=== PATIENT | male | born 1945 | race Caucasian/White ===

== ENCOUNTER 2017-10-30 09:25 | Inpatient (IN) ==
[2017-10-30 10:19] LABS: Basophils % 0.1 % (0.0-0.8); Hematocrit 49.8 VOL% (42.0-52.0); Hemoglobin 16.8 GM/DL (14.0-18.0); Immature Granulocytes % 0.3 %; Immature Granulocytes Absolute 0.03 #; Lymphocytes # 0.6 10*3/uL (1.4-4.0); Lymphocytes % 6.4 % (21.2-54.2); Mean Corpuscular HGB Conc 33.7 GM/DL (32-36); Mean Corpuscular Hemoglobin 27 PG (27-34); Mean Corpuscular Volume 79.8 FL (87-102); Mean Platelet Volume 12.2 FL (9.6-12.0); Monocytes # 1.2 10*3/uL (0.11-0.8); Monocytes % 11.9 % (1.7-12.7); Neutrophils % 81.3 % (38.7-73.9); Platelet Count 162 T/CUMM (130-400); Red Blood Count 6.24 MC/CUMM (3.8-5.5); Red Cell Distribution Width 15.3 % (9.3-17.3); White Blood Count 9.8 T/CUMM (4-12)
[2017-10-30 10:25] LABS: PT Patient Result 10.6 SECS; Partial Thromboplastin Time 23.3 SECS (0-40)
[2017-10-30 10:35] LABS: Bilirubin,Total 0.7 MG/DL (0.2-1.0); Calcium 9.2 MG/DL (8.5-10.1); Osmolality,Calculated 295.7 MOS/KG (273-304); Total Protein 7.4 G/DL (6.4-8.3)
[2017-10-30] MEDS ORDERED: PANTOPRAZOLE 40 MG VIAL IV STA (12:00)
[2017-10-30 13:46] LABS: Band Neutrophils 4 % (0-10); Lymphocytes 10 % (20-55); Segmented Neutrophils 77 % (50-85); Total Cells Counted 100
[2017-10-30 13:54] LABS: Platelet Estimate Normal
[2017-10-30] MEDS ORDERED: ONDANSETRON 4 MG/2 ML VIAL IV PRN (14:07)
[2017-10-30] MEDS ORDERED: DEXTROSE 50% 25 GM/50 ML VIAL IV PRN (15:34)
[2017-10-30] MEDS ORDERED: GLUCAGON 1 MG VIAL IM PRN (15:34)
[2017-10-30] MEDS: INSULIN LISPRO 100 UNIT/ML SUBCUT SCH (18:04)
[2017-10-30 18:11] LABS: Hematocrit 47.7 VOL% (42.0-52.0)
[2017-10-30] MEDS: PANTOPRAZOLE 40 MG VIAL IV SCH (20:17)
[2017-10-31] MEDS: INSULIN LISPRO 100 UNIT/ML SUBCUT SCH ×4 (01:47→17:54)
[2017-10-31 06:50] LABS: Basophils % 0.1 % (0.0-0.8); Hematocrit 44.7 VOL% (42.0-52.0); Hemoglobin 15.1 GM/DL (14.0-18.0); Immature Granulocytes % 0.3 %; Immature Granulocytes Absolute 0.04 #; Lymphocytes # 0.9 10*3/uL (1.4-4.0); Lymphocytes % 7.3 % (21.2-54.2); Mean Corpuscular HGB Conc 33.8 GM/DL (32-36); Mean Corpuscular Hemoglobin 27 PG (27-34); Mean Corpuscular Volume 78.8 FL (87-102); Mean Platelet Volume 12.3 FL (9.6-12.0); Monocytes # 0.9 10*3/uL (0.11-0.8); Monocytes % 7.6 % (1.7-12.7); Neutrophils # 10.5 10*3/uL (1.4-7.4); Neutrophils % 84.7 % (38.7-73.9); Platelet Count 140 T/CUMM (130-400); Red Blood Count 5.67 MC/CUMM (3.8-5.5); Red Cell Distribution Width 15.5 % (9.3-17.3); White Blood Count 12.4 T/CUMM (4-12)
[2017-10-31] MEDS ORDERED: ALBUTEROL 2.5 MG/3 ML NEB RESP TX PRN (07:21)
[2017-10-31 07:28] LABS: Albumin 3.5 G/DL (3.4-5.0); Calcium 8.8 MG/DL (8.5-10.1); Osmolality,Calculated 295.7 MOS/KG (273-304); Total Protein 7.5 G/DL (6.4-8.3)
[2017-10-31] MEDS: PANTOPRAZOLE 40 MG VIAL IV SCH ×2 (08:18→21:32)
[2017-10-31] MEDS: SERTRALINE 100 MG TABLET PO SCH (11:05)
[2017-10-31] MEDS: PRAVASTATIN 40 MG TABLET PO SCH (11:05)
[2017-10-31] MEDS: LISINOPRIL 10 MG TABLET PO SCH (11:05)
[2017-10-31] MEDS: ATENOLOL 25 MG TABLET PO SCH (11:05)
[2017-10-31] MEDS: SODIUM CHLORIDE 0.45% 1,000 ML IV SCH ×2 (11:11→19:38)
[2017-10-31 12:05] LABS: Hematocrit 43.5 VOL% (42.0-52.0); Hemoglobin 14.5 GM/DL (14.0-18.0)
[2017-10-31 14:45] LABS: Platelet Estimate Adequate
[2017-10-31] MEDS: MORPHINE 4 MG/1 ML VIAL IV PRN (17:27)
[2017-10-31 17:53] LABS: Hematocrit 42.7 VOL% (42.0-52.0); Hemoglobin 14.4 GM/DL (14.0-18.0)
[2017-11-01] MEDS: INSULIN LISPRO 100 UNIT/ML SUBCUT SCH ×4 (00:14→18:44)
[2017-11-01 01:43] LABS: Calcium 8.4 MG/DL (8.5-10.1)
[2017-11-01 01:55] LABS: Hematocrit 40.1 VOL% (42.0-52.0); Hemoglobin 13.4 GM/DL (14.0-18.0)
[2017-11-01] MEDS: SODIUM CHLORIDE 0.45% 1,000 ML IV SCH (03:39)
[2017-11-01] MEDS ORDERED: SODIUM CHLORIDE 0.9% 500 ML IV ONE (04:35)
[2017-11-01] MEDS: SODIUM CHLORIDE 0.9% 1,000 ML IV SCH ×2 (05:21→17:26)
[2017-11-01 05:58] LABS: Hematocrit 40.4 VOL% (42.0-52.0); Hemoglobin 13.6 GM/DL (14.0-18.0)
[2017-11-01] MEDS: PANTOPRAZOLE 40 MG VIAL IV SCH ×2 (10:04→21:39)
[2017-11-01] MEDS: PRAVASTATIN 40 MG TABLET PO SCH (10:04)
[2017-11-01] MEDS: SERTRALINE 100 MG TABLET PO SCH (10:05)
[2017-11-01] MEDS ORDERED: TISSUE ADHESIVE 1 EACH APPLICATOR TOP ONE (11:45)
[2017-11-01] MEDS ORDERED: BUPIVACAINE 0.5% 50 ML VIAL ONE (11:45)
[2017-11-01] MEDS ORDERED: ceFAZolin 1,000 MG VIAL ONE (11:45)
[2017-11-01] MEDS ORDERED: BUPIVACAINE 0.5% /EPI 10 ML VIAL ONE (11:45)
[2017-11-01] MEDS ORDERED: LIDOCAINE 1% 20 ML VIAL ONE (11:45)
[2017-11-01] MEDS ORDERED: BACITRACIN 50,000 UNIT VIAL ONE (11:46)
[2017-11-01] MEDS ORDERED: cefOXitin 2,000 MG in SYRINGE 1 EACH IV ONE (12:00)
[2017-11-01] MEDS ORDERED: PHENYLEPHRINE DRIP 20 MG/250 ML PREMIX IV ONE ×2 (13:03→15:48)
[2017-11-01 15:13] LABS: Apearance,Urine CLEAR (Clear); Bacteria,Urine Occasional /HPF (Few); Bilirubin,Urine Negative (Negative); Blood, Urine Moderate mg/dL (Negative); Glucose,Urine (UA) Negative (Negative); Hyaline Casts,Urine 1 /LPF (0-3); Ketones,Urine Negative (Negative); Nitrite,Urine Negative (Negative); Protein,Urine Negative; RBC,Urine 1 /HPF (0-4); Squamous Epithelial Cell,Urine Occasional /HPF (0-10); Urine Color Yellow (Yellow); Urine Specific Gravity 1.013 (1.001-1.035); Urine Urobilinogen < 2.0 EU/DL (0.2-1.0); WBC,Urine 1 /HPF (0-6)
[2017-11-01] MEDS ORDERED: HYDROmorphone 2 MG/1 ML VIAL ONE (15:40)
[2017-11-01] MEDS ORDERED: ONDANSETRON 4 MG/2 ML VIAL ONE (15:41)
[2017-11-01] MEDS ORDERED: LABETALOL 20 MG/4 ML SYRINGE IV ONE (15:48)
[2017-11-01] MEDS ORDERED: PROPOFOL 200 MG/20 ML VIAL IV ONE (15:48)
[2017-11-01] MEDS ORDERED: MIDAZOLAM 2 MG/2 ML VIAL ONE (15:48)
[2017-11-01] MEDS ORDERED: DESFLURANE 1 UNIT/15 MINUTE INH ONE (15:48)
[2017-11-01] MEDS ORDERED: fentaNYL 100 MCG/2 ML VIAL ONE (15:48)
[2017-11-01] MEDS ORDERED: GLYCOPYRROLATE 0.4 MG/2 ML VIAL ONE (15:49)
[2017-11-01] MEDS: ATENOLOL 25 MG TABLET PO SCH (15:49)
[2017-11-01] MEDS ORDERED: LACTATED RINGERS 1,000 ML IV ONE (15:49)
[2017-11-01] MEDS: LISINOPRIL 10 MG TABLET PO SCH (15:49)
[2017-11-01] MEDS ORDERED: ROCURONIUM 100 MG/10 ML VIAL IV ONE (15:49)
[2017-11-01] MEDS ORDERED: SUCCINYLCHOLINE 200 MG/10 ML VIAL ONE (15:49)
[2017-11-01] MEDS ORDERED: NEOSTIGMINE 10 MG/10 ML VIAL ONE (15:49)
[2017-11-01] MEDS ORDERED: PHENYLEPHRINE 10 MG/1 ML VIAL IV ONE (15:49)
[2017-11-01] MEDS ORDERED: ONDANSETRON 4 MG/2 ML VIAL IV PRN (15:59)
[2017-11-01] MEDS: HYDROmorphone 2 MG/1 ML VIAL IV PRN ×2 (16:00→16:05)
[2017-11-01] MEDS: MORPHINE 4 MG/1 ML VIAL IV PRN (21:48)
[2017-11-02] MEDS: MORPHINE 4 MG/1 ML VIAL IV PRN ×2 (04:16→10:28)
[2017-11-02 04:37] LABS: Hematocrit 40.5 VOL% (42.0-52.0); Hemoglobin 13.2 GM/DL (14.0-18.0); Immature Granulocytes % 0.4 %; Immature Granulocytes Absolute 0.04 #; Lymphocytes # 0.4 10*3/uL (1.4-4.0); Lymphocytes % 4.4 % (21.2-54.2); Mean Corpuscular HGB Conc 32.6 GM/DL (32-36); Mean Corpuscular Hemoglobin 27 PG (27-34); Mean Corpuscular Volume 83.2 FL (87-102); Mean Platelet Volume 12.3 FL (9.6-12.0); Monocytes # 0.8 10*3/uL (0.11-0.8); Monocytes % 8.1 % (1.7-12.7); Neutrophils # 8.6 10*3/uL (1.4-7.4); Neutrophils % 87.1 % (38.7-73.9); Platelet Count 131 T/CUMM (130-400); Red Blood Count 4.87 MC/CUMM (3.8-5.5); Red Cell Distribution Width 15.2 % (9.3-17.3); White Blood Count 9.9 T/CUMM (4-12)
[2017-11-02 05:07] LABS: Albumin 2.2 G/DL (3.4-5.0); Bilirubin,Total 1.1 MG/DL (0.2-1.0); Calcium 8.1 MG/DL (8.5-10.1); Osmolality,Calculated 302.3 MOS/KG (273-304); Potassium 4.2 MMOL/L (3.5-5.1)
[2017-11-02 05:13] LABS: Band Neutrophils 3 % (0-10); Hypochromasia Slight; Lymphocytes 9 % (20-55); Platelet Estimate Normal; Segmented Neutrophils 86 % (50-85); Total Cells Counted 100
[2017-11-02] MEDS: INSULIN LISPRO 100 UNIT/ML SUBCUT SCH ×4 (06:00→17:54)
[2017-11-02] MEDS: SODIUM CHLORIDE 0.9% 1,000 ML IV SCH ×2 (08:47)
[2017-11-02] MEDS: PIPERACILLIN/TAZOBACTAM 3,375 MG in SODIUM CHLORIDE 0.9% 100 ML IV SCH ×2 (10:19→17:04)
[2017-11-02] MEDS: SERTRALINE 100 MG TABLET PO SCH (11:51)
[2017-11-02] MEDS: LISINOPRIL 10 MG TABLET PO SCH (11:51)
[2017-11-02] MEDS: ATENOLOL 25 MG TABLET PO SCH (11:51)
[2017-11-02] MEDS: PANTOPRAZOLE 40 MG VIAL IV SCH ×2 (11:51→21:02)
[2017-11-02] MEDS: PRAVASTATIN 40 MG TABLET PO SCH (11:51)
[2017-11-02] MEDS: METOCLOPRAMIDE 10 MG/2 ML VIAL IV SCH ×2 (13:00→21:00)
[2017-11-02] MEDS: DEXT 5% NACL 0.45% KCL 20 MEQ 20 MEQ/1,000 ML BAG IV SCH ×2 (13:00→19:30)
[2017-11-02] MEDS: HYDROmorphone 2 MG/1 ML VIAL IV PRN ×2 (15:43→20:53)
[2017-11-03] MEDS: INSULIN LISPRO 100 UNIT/ML SUBCUT SCH ×5 (00:14→23:55)
[2017-11-03] MEDS: PIPERACILLIN/TAZOBACTAM 3,375 MG in SODIUM CHLORIDE 0.9% 100 ML IV SCH ×2 (01:54→08:55)
[2017-11-03] MEDS: HYDROmorphone 2 MG/1 ML VIAL IV PRN ×6 (04:03→23:45)
[2017-11-03] MEDS: METOCLOPRAMIDE 10 MG/2 ML VIAL IV SCH (05:47)
[2017-11-03] MEDS: PANTOPRAZOLE 40 MG VIAL IV SCH ×2 (08:53→20:53)
[2017-11-03] MEDS: DEXT 5% NACL 0.45% KCL 20 MEQ 20 MEQ/1,000 ML BAG IV SCH ×4 (08:57→20:58)
[2017-11-03 10:05] LABS: Basophils % 0.1 % (0.0-0.8); Eosinophils % 0.2 % (0.00-10.9); Hematocrit 40.2 VOL% (42.0-52.0); Hemoglobin 13.1 GM/DL (14.0-18.0); Immature Granulocytes % 1.3 %; Immature Granulocytes Absolute 0.13 #; Lymphocytes # 0.7 10*3/uL (1.4-4.0); Lymphocytes % 7.2 % (21.2-54.2); Mean Corpuscular HGB Conc 32.6 GM/DL (32-36); Mean Corpuscular Hemoglobin 27 PG (27-34); Mean Corpuscular Volume 82.9 FL (87-102); Mean Platelet Volume 11.2 FL (9.6-12.0); Monocytes # 0.9 10*3/uL (0.11-0.8); Monocytes % 8.8 % (1.7-12.7); Neutrophils # 8.2 10*3/uL (1.4-7.4); Neutrophils % 82.4 % (38.7-73.9); Platelet Count 153 T/CUMM (130-400); Red Blood Count 4.85 MC/CUMM (3.8-5.5); Red Cell Distribution Width 15.3 % (9.3-17.3); White Blood Count 9.9 T/CUMM (4-12)
[2017-11-03] MEDS: TAMSULOSIN 0.4 MG CAPSULE PO SCH (10:18)
[2017-11-03] MEDS: PRAVASTATIN 40 MG TABLET PO SCH (10:19)
[2017-11-03] MEDS: ATENOLOL 25 MG TABLET PO SCH (10:19)
[2017-11-03] MEDS: LISINOPRIL 10 MG TABLET PO SCH (10:19)
[2017-11-03] MEDS: SERTRALINE 100 MG TABLET PO SCH (10:19)
[2017-11-03 10:24] LABS: Band Neutrophils 2 % (0-10); Hypochromasia 1+; Lymphocytes 7 % (20-55); Platelet Estimate Adequate; Segmented Neutrophils 84 % (50-85); Total Cells Counted 100
[2017-11-03 10:32] LABS: Calcium 8.4 MG/DL (8.5-10.1); Osmolality,Calculated 312.2 MOS/KG (273-304); Potassium 3.9 MMOL/L (3.5-5.1)
[2017-11-03] MEDS: chlorproMAZINE 25 MG TABLET PO PRN ×2 (13:00→20:53)
[2017-11-03] MEDS: ceFAZolin 2,000 MG in PREMIX 1 EACH IV SCH (16:18)
[2017-11-04] MEDS: ceFAZolin 2,000 MG in PREMIX 1 EACH IV SCH ×3 (00:33→16:52)
[2017-11-04] MEDS: HYDROmorphone 2 MG/1 ML VIAL IV PRN ×6 (03:26→22:53)
[2017-11-04] MEDS: DEXT 5% NACL 0.45% KCL 20 MEQ 20 MEQ/1,000 ML BAG IV SCH (04:50)
[2017-11-04 05:18] LABS: Basophils % 0.2 % (0.0-0.8); Eosinophils # 0.1 10*3/uL (0.0-0.87); Eosinophils % 1.1 % (0.00-10.9); Hematocrit 37.3 VOL% (42.0-52.0); Hemoglobin 12.4 GM/DL (14.0-18.0); Immature Granulocytes % 1.6 %; Immature Granulocytes Absolute 0.14 #; Lymphocytes # 0.7 10*3/uL (1.4-4.0); Lymphocytes % 8.2 % (21.2-54.2); Mean Corpuscular HGB Conc 33.2 GM/DL (32-36); Mean Corpuscular Hemoglobin 27 PG (27-34); Mean Corpuscular Volume 81.3 FL (87-102); Monocytes # 0.9 10*3/uL (0.11-0.8); Monocytes % 9.6 % (1.7-12.7); Neutrophils % 79.3 % (38.7-73.9); Platelet Count 150 T/CUMM (130-400); Red Blood Count 4.59 MC/CUMM (3.8-5.5); Red Cell Distribution Width 15.3 % (9.3-17.3); White Blood Count 8.8 T/CUMM (4-12)
[2017-11-04] MEDS: INSULIN LISPRO 100 UNIT/ML SUBCUT SCH ×3 (05:31→18:55)
[2017-11-04] MEDS: ACETAMINOPHEN 325 MG TABLET PO PRN (05:31)
[2017-11-04 05:51] LABS: Calcium 7.8 MG/DL (8.5-10.1); Osmolality,Calculated 315.9 MOS/KG (273-304); Potassium 3.7 MMOL/L (3.5-5.1)
[2017-11-04] MEDS: LISINOPRIL 10 MG TABLET PO SCH (09:02)
[2017-11-04] MEDS: SERTRALINE 100 MG TABLET PO SCH (09:02)
[2017-11-04] MEDS: TAMSULOSIN 0.4 MG CAPSULE PO SCH (09:03)
[2017-11-04] MEDS: PANTOPRAZOLE 40 MG VIAL IV SCH ×2 (09:03→20:29)
[2017-11-04] MEDS: PRAVASTATIN 40 MG TABLET PO SCH (09:04)
[2017-11-04] MEDS: ATENOLOL 25 MG TABLET PO SCH (09:04)
[2017-11-04] MEDS: DEXTROSE 5% KCL 20 MEQ 20 MEQ/1,000 ML BAG IV SCH ×2 (11:39→23:33)
[2017-11-04] MEDS: metroNIDAZOLE INJ 500 MG in PREMIX 1 EACH IV SCH ×3 (11:39→23:14)
[2017-11-04] MEDS ORDERED: ATENOLOL 50 MG TABLET PO SCH (12:15)
[2017-11-04] MEDS ORDERED: MAGNESIUM SULF RIDER 4 GM in PREMIX 1 EACH IV PRN (13:48)
[2017-11-04] MEDS ORDERED: MAGNESIUM SULF RIDER 2 GM in PREMIX 1 EACH IV PRN (13:48)
[2017-11-04] MEDS ORDERED: METOPROLOL TARTRATE 5 MG/5 ML VIAL IV ONE (14:30)
[2017-11-04] MEDS ORDERED: KETOROLAC 30 MG/1 ML VIAL IV ONE (16:06)
[2017-11-04] MEDS ORDERED: MULTIVITAMIN IV SCH (17:00)
[2017-11-04] MEDS ORDERED: TRACE ELEMENTS IV SCH (17:00)
[2017-11-04] MEDS ORDERED: [UNRECOGNIZED DRUG - OTHER] IV SCH (17:00)
[2017-11-04] MEDS: KETOROLAC 30 MG/1 ML VIAL IV PRN (20:23)
[2017-11-04] MEDS: FAT EMULSION 20% 250 ML IV SCH (20:24)
[2017-11-04] MEDS: METOPROLOL TARTRATE 5 MG/5 ML VIAL IV SCH (20:29)
[2017-11-04] MEDS ORDERED: LORazepam 2 MG/1 ML VIAL IV ONE (23:00)
[2017-11-05] MEDS: INSULIN LISPRO 100 UNIT/ML SUBCUT SCH ×5 (00:15→23:55)
[2017-11-05] MEDS: ceFAZolin 2,000 MG in PREMIX 1 EACH IV SCH ×2 (00:16→08:59)
[2017-11-05] MEDS: METOPROLOL TARTRATE 5 MG/5 ML VIAL IV SCH ×4 (02:02→21:19)
[2017-11-05 03:44] LABS: Basophils % 0.2 % (0.0-0.8); Eosinophils # 0.3 10*3/uL (0.0-0.87); Eosinophils % 3.1 % (0.00-10.9); Hematocrit 37.3 VOL% (42.0-52.0); Immature Granulocytes % 2.7 %; Immature Granulocytes Absolute 0.26 #; Lymphocytes # 1.1 10*3/uL (1.4-4.0); Lymphocytes % 11.4 % (21.2-54.2); Mean Corpuscular HGB Conc 32.2 GM/DL (32-36); Mean Corpuscular Hemoglobin 27 PG (27-34); Mean Corpuscular Volume 83.3 FL (87-102); Mean Platelet Volume 10.9 FL (9.6-12.0); Monocytes # 0.8 10*3/uL (0.11-0.8); Monocytes % 8.6 % (1.7-12.7); Neutrophils # 7.3 10*3/uL (1.4-7.4); Platelet Count 161 T/CUMM (130-400); Red Blood Count 4.48 MC/CUMM (3.8-5.5); Red Cell Distribution Width 15.5 % (9.3-17.3); White Blood Count 9.8 T/CUMM (4-12)
[2017-11-05 04:24] LABS: Osmolality,Calculated 305.6 MOS/KG (273-304); Potassium 3.6 MMOL/L (3.5-5.1); Prealbumin 6.7 MG/DL (20-40); Troponin I 0.022 NG/ML (0.00-0.045)
[2017-11-05] MEDS: metroNIDAZOLE INJ 500 MG in PREMIX 1 EACH IV SCH ×3 (04:47→17:29)
[2017-11-05] MEDS ORDERED: LORazepam 2 MG/1 ML VIAL IV ONE (05:37)
[2017-11-05] MEDS ORDERED: DILTIAZEM 50 MG/10 ML VIAL IV ONE (08:01)
[2017-11-05] MEDS ORDERED: ALBUTEROL 2.5 MG/3 ML NEB RESP TX SCH (08:30)
[2017-11-05] MEDS ORDERED: DILTIAZEM INJ 100 MG in SODIUM CHLORIDE 0.9% 100 ML IV SCH (08:30)
[2017-11-05] MEDS: TAMSULOSIN 0.4 MG CAPSULE PO SCH (08:55)
[2017-11-05] MEDS: SERTRALINE 100 MG TABLET PO SCH (08:55)
[2017-11-05] MEDS: LISINOPRIL 10 MG TABLET PO SCH (08:55)
[2017-11-05] MEDS: PANTOPRAZOLE 40 MG VIAL IV SCH ×2 (09:15→21:19)
[2017-11-05] MEDS: KETOROLAC 30 MG/1 ML VIAL IV PRN ×2 (09:18→16:16)
[2017-11-05] MEDS: ALBUTEROL/IPRATROPIUM 3 ML NEB RESP TX SCH ×3 (09:23→19:22)
[2017-11-05] MEDS ORDERED: DIGOXIN 0.5 MG/2 ML AMP IV ONE (10:33)
[2017-11-05] MEDS: DEXTROSE 5% KCL 20 MEQ 20 MEQ/1,000 ML BAG IV SCH ×2 (10:51→14:10)
[2017-11-05] MEDS ORDERED: DEXTROSE 10% 1,000 ML IV PRN (11:46)
[2017-11-05] MEDS ORDERED: AMIODARONE INJ 150 MG in DEXTROSE 5% 100 ML IV ONE (12:58)
[2017-11-05] MEDS ORDERED: AMIODARONE INJ 450 MG in DEXTROSE 5% 241 ML IV SCH (13:00)
[2017-11-05] MEDS: FAT EMULSION 20% 250 ML IV SCH (13:56)
[2017-11-05] MEDS ORDERED: SODIUM PHOSPHATE INJ 15 MMOL in SODIUM CHLORIDE 0.9% 250 ML IV ONE (14:00)
[2017-11-05] MEDS: POTASSIUM CHLORIDE RIDER 20 MEQ in PREMIX 1 EACH IV PRN (16:18)
[2017-11-05] MEDS ORDERED: POLYVINYL ALCOHOL 1.4% OPH SOLN 15 ML BOTTLE BOTH EYES PRN (16:57)
[2017-11-05] MEDS ORDERED: LORazepam 2 MG/1 ML VIAL ONE (17:21)
[2017-11-05] MEDS: [UNRECOGNIZED DRUG - OTHER] IV SCH (19:11)
[2017-11-05] MEDS: TRACE ELEMENTS IV SCH (19:11)
[2017-11-05] MEDS: MULTIVITAMIN IV SCH (19:11)
[2017-11-05] MEDS ORDERED: HALOPERIDOL 5 MG/ML AMP IM ONE (19:26)
[2017-11-05] MEDS: AMIODARONE INJ 450 MG in DEXTROSE 5% 241 ML IV SCH (21:19)
[2017-11-06] MEDS: ALBUTEROL/IPRATROPIUM 3 ML NEB RESP TX SCH ×4 (00:08→19:04)
[2017-11-06] MEDS: metroNIDAZOLE INJ 500 MG in PREMIX 1 EACH IV SCH ×5 (00:23→23:47)
[2017-11-06] MEDS: DEXTROSE 5% KCL 20 MEQ 20 MEQ/1,000 ML BAG IV SCH ×2 (02:54→09:37)
[2017-11-06] MEDS: METOPROLOL TARTRATE 5 MG/5 ML VIAL IV SCH ×4 (04:03→20:52)
[2017-11-06 05:15] LABS: Basophils % 0.2 % (0.0-0.8); Eosinophils # 0.2 10*3/uL (0.0-0.87); Eosinophils % 2.3 % (0.00-10.9); Hematocrit 37.4 VOL% (42.0-52.0); Hemoglobin 12.6 GM/DL (14.0-18.0); Immature Granulocytes % 6.8 %; Immature Granulocytes Absolute 0.65 #; Lymphocytes % 10.3 % (21.2-54.2); Mean Corpuscular HGB Conc 33.7 GM/DL (32-36); Mean Corpuscular Hemoglobin 27 PG (27-34); Mean Corpuscular Volume 78.7 FL (87-102); Mean Platelet Volume 11.5 FL (9.6-12.0); Monocytes # 0.6 10*3/uL (0.11-0.8); Monocytes % 6.5 % (1.7-12.7); Neutrophils # 7.1 10*3/uL (1.4-7.4); Neutrophils % 73.9 % (38.7-73.9); Platelet Count 169 T/CUMM (130-400); Red Blood Count 4.75 MC/CUMM (3.8-5.5); Red Cell Distribution Width 14.7 % (9.3-17.3); White Blood Count 9.6 T/CUMM (4-12)
[2017-11-06 05:40] LABS: Calcium 7.4 MG/DL (8.5-10.1); Osmolality,Calculated 294.3 MOS/KG (273-304); Potassium 3.4 MMOL/L (3.5-5.1)
[2017-11-06 05:53] LABS: Band Neutrophils 2 % (0-10); Eosinophils 1 % (0-10); Hypochromasia 1+; Lymphocytes 20 % (20-55); Platelet Estimate Normal; Segmented Neutrophils 70 % (50-85); Total Cells Counted 100
[2017-11-06] MEDS: INSULIN LISPRO 100 UNIT/ML SUBCUT SCH ×4 (06:04→23:47)
[2017-11-06] MEDS: TAMSULOSIN 0.4 MG CAPSULE PO SCH (09:31)
[2017-11-06] MEDS: LISINOPRIL 10 MG TABLET PO SCH (09:31)
[2017-11-06] MEDS: PANTOPRAZOLE 40 MG VIAL IV SCH ×2 (09:31→20:49)
[2017-11-06] MEDS: SERTRALINE 100 MG TABLET PO SCH (09:31)
[2017-11-06] MEDS ORDERED: POTASSIUM CHLORIDE RIDER 100 ML IV ONE (09:32)
[2017-11-06] MEDS: KETOROLAC 30 MG/1 ML VIAL IV PRN ×2 (09:33→15:00)
[2017-11-06] MEDS: POTASSIUM CHLORIDE RIDER 20 MEQ in PREMIX 1 EACH IV PRN (09:38)
[2017-11-06] MEDS ORDERED: POTASSIUM CHLORIDE RIDER 10 MEQ in PREMIX 1 EACH IV PRN (09:40)
[2017-11-06] MEDS: ENOXAPARIN 40 MG/0.4 ML SYRINGE SUBCUT SCH (11:12)
[2017-11-06] MEDS: AMIODARONE INJ 450 MG in DEXTROSE 5% 241 ML IV SCH (13:37)
[2017-11-06] MEDS: FAT EMULSION 20% 250 ML IV SCH (13:51)
[2017-11-06] MEDS: HYDROmorphone 2 MG/1 ML VIAL IV PRN (14:57)
[2017-11-06] MEDS: MULTIVITAMIN IV SCH (17:40)
[2017-11-06] MEDS: ceFAZolin 2,000 MG in PREMIX 1 EACH IV SCH (17:40)
[2017-11-06] MEDS: [UNRECOGNIZED DRUG - OTHER] IV SCH (17:40)
[2017-11-06] MEDS: TRACE ELEMENTS IV SCH (17:40)
[2017-11-07] MEDS: ALBUTEROL/IPRATROPIUM 3 ML NEB RESP TX SCH ×4 (01:04→19:07)
[2017-11-07] MEDS: ceFAZolin 2,000 MG in PREMIX 1 EACH IV SCH ×3 (01:15→17:12)
[2017-11-07] MEDS: METOPROLOL TARTRATE 5 MG/5 ML VIAL IV SCH ×2 (04:02→10:19)
[2017-11-07] MEDS: AMIODARONE INJ 450 MG in DEXTROSE 5% 241 ML IV SCH (05:29)
[2017-11-07] MEDS: metroNIDAZOLE INJ 500 MG in PREMIX 1 EACH IV SCH ×3 (05:29→16:03)
[2017-11-07 05:57] LABS: Calcium 7.6 MG/DL (8.5-10.1); Osmolality,Calculated 289.1 MOS/KG (273-304)
[2017-11-07] MEDS: INSULIN LISPRO 100 UNIT/ML SUBCUT SCH ×3 (06:20→18:38)
[2017-11-07] MEDS: LISINOPRIL 10 MG TABLET PO SCH (08:27)
[2017-11-07] MEDS: TAMSULOSIN 0.4 MG CAPSULE PO SCH (08:27)
[2017-11-07] MEDS: SERTRALINE 100 MG TABLET PO SCH (08:27)
[2017-11-07] MEDS: PANTOPRAZOLE 40 MG VIAL IV SCH ×2 (08:28→20:25)
[2017-11-07] MEDS: KETOROLAC 30 MG/1 ML VIAL IV PRN ×2 (08:30→15:20)
[2017-11-07] MEDS: DEXTROSE 5% KCL 20 MEQ 20 MEQ/1,000 ML BAG IV SCH (08:36)
[2017-11-07] MEDS: ENOXAPARIN 40 MG/0.4 ML SYRINGE SUBCUT SCH (10:23)
[2017-11-07] MEDS: AMIODARONE 200 MG TABLET PO SCH ×2 (12:08→20:25)
[2017-11-07] MEDS: HYDROmorphone 2 MG/1 ML VIAL IV PRN ×2 (12:53→15:23)
[2017-11-07] MEDS: FAT EMULSION 20% 250 ML IV SCH (15:19)
[2017-11-07] MEDS: METOPROLOL TARTRATE 25 MG TABLET PO SCH ×2 (15:23→20:25)
[2017-11-07] MEDS: MULTIVITAMIN IV SCH (17:12)
[2017-11-07] MEDS: TRACE ELEMENTS IV SCH (17:12)
[2017-11-07] MEDS: [UNRECOGNIZED DRUG - OTHER] IV SCH (17:12)
[2017-11-08] MEDS: INSULIN LISPRO 100 UNIT/ML SUBCUT SCH ×4 (00:16→17:49)
[2017-11-08] MEDS: metroNIDAZOLE INJ 500 MG in PREMIX 1 EACH IV SCH ×5 (00:16→23:23)
[2017-11-08] MEDS: ALBUTEROL/IPRATROPIUM 3 ML NEB RESP TX SCH ×4 (01:45→19:06)
[2017-11-08] MEDS: ceFAZolin 2,000 MG in PREMIX 1 EACH IV SCH ×3 (01:55→16:28)
[2017-11-08] MEDS: HYDROmorphone 2 MG/1 ML VIAL IV PRN (04:50)
[2017-11-08 05:32] LABS: Calcium 7.8 MG/DL (8.5-10.1); Osmolality,Calculated 287.1 MOS/KG (273-304); Potassium 4.5 MMOL/L (3.5-5.1); Prealbumin 12.2 MG/DL (20-40)
[2017-11-08 05:40] LABS: Calcium 7.8 MG/DL (8.5-10.1); Potassium 4.5 MMOL/L (3.5-5.1)
[2017-11-08] MEDS: ENOXAPARIN 40 MG/0.4 ML SYRINGE SUBCUT SCH (09:19)
[2017-11-08] MEDS: AMIODARONE 200 MG TABLET PO SCH ×2 (09:19→21:17)
[2017-11-08] MEDS: LISINOPRIL 10 MG TABLET PO SCH (09:20)
[2017-11-08] MEDS: METOPROLOL TARTRATE 25 MG TABLET PO SCH ×2 (09:20→21:18)
[2017-11-08] MEDS: TAMSULOSIN 0.4 MG CAPSULE PO SCH (09:20)
[2017-11-08] MEDS: SERTRALINE 100 MG TABLET PO SCH (09:20)
[2017-11-08] MEDS: PANTOPRAZOLE 40 MG VIAL IV SCH ×2 (09:26→21:18)
[2017-11-08] MEDS ORDERED: BISACODYL 5 MG TABLET PO PRN (10:44)
[2017-11-08] MEDS ORDERED: SODIUM CHLORIDE 0.9% IV ONE (11:00)
[2017-11-08] MEDS ORDERED: SODIUM PHOSPHATE IV ONE (11:00)
[2017-11-08] MEDS: FAT EMULSION 20% 250 ML IV SCH (14:45)
[2017-11-08] MEDS: [UNRECOGNIZED DRUG - OTHER] IV SCH (16:11)
[2017-11-08] MEDS: MULTIVITAMIN IV SCH (16:11)
[2017-11-08] MEDS: TRACE ELEMENTS IV SCH (16:11)
[2017-11-09] MEDS: ALBUTEROL/IPRATROPIUM 3 ML NEB RESP TX SCH ×4 (00:25→20:14)
[2017-11-09] MEDS: DEXTROSE 5% KCL 20 MEQ 20 MEQ/1,000 ML BAG IV SCH ×2 (00:30→17:50)
[2017-11-09] MEDS: INSULIN LISPRO 100 UNIT/ML SUBCUT SCH ×5 (01:51→23:38)
[2017-11-09] MEDS: ceFAZolin 2,000 MG in PREMIX 1 EACH IV SCH ×3 (01:55→17:20)
[2017-11-09 05:02] LABS: Basophils # 0.1 10*3/uL (0.0-0.2); Basophils % 0.4 % (0.0-0.8); Eosinophils # 0.2 10*3/uL (0.0-0.87); Eosinophils % 1.6 % (0.00-10.9); Hematocrit 35.9 VOL% (42.0-52.0); Immature Granulocytes % 6.6 %; Immature Granulocytes Absolute 0.77 #; Mean Corpuscular HGB Conc 33.4 GM/DL (32-36); Mean Corpuscular Hemoglobin 27 PG (27-34); Mean Corpuscular Volume 79.4 FL (87-102); Mean Platelet Volume 11.4 FL (9.6-12.0); Monocytes # 0.8 10*3/uL (0.11-0.8); Monocytes % 7.2 % (1.7-12.7); Neutrophils # 8.7 10*3/uL (1.4-7.4); Neutrophils % 75.2 % (38.7-73.9); Platelet Count 163 T/CUMM (130-400); Red Blood Count 4.52 MC/CUMM (3.8-5.5); Red Cell Distribution Width 14.8 % (9.3-17.3); White Blood Count 11.6 T/CUMM (4-12)
[2017-11-09 05:24] LABS: Eosinophils 1 % (0-10); Lymphocytes 4 % (20-55); Metamyelocytes 2 %; Myelocytes 3 %; Segmented Neutrophils 86 % (50-85); Total Cells Counted 100
[2017-11-09 05:25] LABS: Hypochromasia 1+; Microcytosis 1+
[2017-11-09] MEDS: metroNIDAZOLE INJ 500 MG in PREMIX 1 EACH IV SCH ×4 (05:25→23:35)
[2017-11-09 05:26] LABS: Ovalocytes Slight; Platelet Estimate Adequate
[2017-11-09 05:29] LABS: Osmolality,Calculated 286.1 MOS/KG (273-304); Potassium 4.1 MMOL/L (3.5-5.1)
[2017-11-09] MEDS: LISINOPRIL 10 MG TABLET PO SCH (08:27)
[2017-11-09] MEDS: AMIODARONE 200 MG TABLET PO SCH ×2 (08:27→20:44)
[2017-11-09] MEDS: SERTRALINE 100 MG TABLET PO SCH (08:27)
[2017-11-09] MEDS: METOPROLOL TARTRATE 25 MG TABLET PO SCH ×2 (08:27→20:44)
[2017-11-09] MEDS: TAMSULOSIN 0.4 MG CAPSULE PO SCH (08:27)
[2017-11-09] MEDS: PANTOPRAZOLE 40 MG VIAL IV SCH ×2 (08:27→20:08)
[2017-11-09] MEDS: ENOXAPARIN 40 MG/0.4 ML SYRINGE SUBCUT SCH (10:01)
[2017-11-09] MEDS: FAT EMULSION 20% 250 ML IV SCH (13:43)
[2017-11-09] MEDS: TRACE ELEMENTS IV SCH (15:45)
[2017-11-09] MEDS: MULTIVITAMIN IV SCH (15:45)
[2017-11-09] MEDS: [UNRECOGNIZED DRUG - OTHER] IV SCH (15:45)
[2017-11-09] MEDS: KETOROLAC 30 MG/1 ML VIAL IV PRN (20:06)
[2017-11-10] MEDS: ALBUTEROL/IPRATROPIUM 3 ML NEB RESP TX SCH ×5 (00:23→19:23)
[2017-11-10] MEDS: ceFAZolin 2,000 MG in PREMIX 1 EACH IV SCH ×3 (00:37→17:09)
[2017-11-10] MEDS: metroNIDAZOLE INJ 500 MG in PREMIX 1 EACH IV SCH ×4 (05:39→22:35)
[2017-11-10] MEDS: INSULIN LISPRO 100 UNIT/ML SUBCUT SCH ×4 (05:43→23:49)
[2017-11-10 06:26] LABS: Basophils # 0.1 10*3/uL (0.0-0.2); Basophils % 0.4 % (0.0-0.8); Eosinophils # 0.2 10*3/uL (0.0-0.87); Eosinophils % 1.4 % (0.00-10.9); Hematocrit 37.9 VOL% (42.0-52.0); Hemoglobin 12.4 GM/DL (14.0-18.0); Immature Granulocytes % 5.4 %; Immature Granulocytes Absolute 0.62 #; Lymphocytes # 1.2 10*3/uL (1.4-4.0); Lymphocytes % 10.7 % (21.2-54.2); Mean Corpuscular HGB Conc 32.7 GM/DL (32-36); Mean Corpuscular Hemoglobin 27 PG (27-34); Mean Platelet Volume 11.5 FL (9.6-12.0); Monocytes # 0.9 10*3/uL (0.11-0.8); Monocytes % 8.1 % (1.7-12.7); Neutrophils # 8.5 10*3/uL (1.4-7.4); Platelet Count 187 T/CUMM (130-400); Red Blood Count 4.68 MC/CUMM (3.8-5.5); Red Cell Distribution Width 15.1 % (9.3-17.3); White Blood Count 11.5 T/CUMM (4-12)
[2017-11-10 06:53] LABS: Calcium 8.3 MG/DL (8.5-10.1); Osmolality,Calculated 281.4 MOS/KG (273-304); Potassium 4.9 MMOL/L (3.5-5.1)
[2017-11-10 07:06] LABS: Eosinophils 1 % (0-10); Lymphocytes 17 % (20-55); Metamyelocytes 1 %; Segmented Neutrophils 76 % (50-85); Total Cells Counted 100
[2017-11-10 07:07] LABS: Hypochromasia 1+
[2017-11-10 07:08] LABS: Microcytosis 1+
[2017-11-10] MEDS: DEXTROSE 5% KCL 20 MEQ 20 MEQ/1,000 ML BAG IV SCH ×2 (09:22→20:54)
[2017-11-10] MEDS: AMIODARONE 200 MG TABLET PO SCH ×2 (11:07→20:55)
[2017-11-10] MEDS: PANTOPRAZOLE 40 MG VIAL IV SCH ×2 (11:08→20:55)
[2017-11-10] MEDS: METOPROLOL TARTRATE 25 MG TABLET PO SCH ×2 (11:08→20:55)
[2017-11-10] MEDS: TAMSULOSIN 0.4 MG CAPSULE PO SCH (11:08)
[2017-11-10] MEDS: LISINOPRIL 10 MG TABLET PO SCH (11:08)
[2017-11-10] MEDS: ENOXAPARIN 40 MG/0.4 ML SYRINGE SUBCUT SCH (11:09)
[2017-11-10] MEDS: SERTRALINE 100 MG TABLET PO SCH (11:09)
[2017-11-10] MEDS: FAT EMULSION 20% 250 ML IV SCH (14:00)
[2017-11-10] MEDS: MULTIVITAMIN IV SCH (15:40)
[2017-11-10] MEDS: TRACE ELEMENTS IV SCH (15:40)
[2017-11-10] MEDS: [UNRECOGNIZED DRUG - OTHER] IV SCH (15:40)
[2017-11-10] MEDS: ACETAMINOPHEN 325 MG TABLET PO PRN (20:56)
[2017-11-11] MEDS: ALBUTEROL/IPRATROPIUM 3 ML NEB RESP TX SCH ×4 (00:21→19:40)
[2017-11-11] MEDS: ceFAZolin 2,000 MG in PREMIX 1 EACH IV SCH ×3 (00:41→18:05)
[2017-11-11] MEDS: metroNIDAZOLE INJ 500 MG in PREMIX 1 EACH IV SCH ×4 (04:35→22:42)
[2017-11-11] MEDS: INSULIN LISPRO 100 UNIT/ML SUBCUT SCH ×3 (05:30→17:35)
[2017-11-11] MEDS: DEXTROSE 5% KCL 20 MEQ 20 MEQ/1,000 ML BAG IV SCH (09:22)
[2017-11-11] MEDS: TAMSULOSIN 0.4 MG CAPSULE PO SCH (10:15)
[2017-11-11] MEDS: PANTOPRAZOLE 40 MG VIAL IV SCH ×2 (10:15→21:20)
[2017-11-11] MEDS: AMIODARONE 200 MG TABLET PO SCH ×2 (10:15→21:19)
[2017-11-11] MEDS: METOPROLOL TARTRATE 25 MG TABLET PO SCH ×2 (10:15→21:19)
[2017-11-11] MEDS: LISINOPRIL 10 MG TABLET PO SCH (10:15)
[2017-11-11] MEDS: SERTRALINE 100 MG TABLET PO SCH (10:16)
[2017-11-11] MEDS: ENOXAPARIN 40 MG/0.4 ML SYRINGE SUBCUT SCH (10:23)
[2017-11-11] MEDS: ACETAMINOPHEN 325 MG TABLET PO PRN ×2 (12:53→18:03)
[2017-11-12] MEDS: INSULIN LISPRO 100 UNIT/ML SUBCUT SCH ×3 (00:25→11:52)
[2017-11-12] MEDS: ceFAZolin 2,000 MG in PREMIX 1 EACH IV SCH ×2 (00:56→09:58)
[2017-11-12] MEDS: ALBUTEROL/IPRATROPIUM 3 ML NEB RESP TX SCH ×2 (01:12→07:05)
[2017-11-12] MEDS: metroNIDAZOLE INJ 500 MG in PREMIX 1 EACH IV SCH ×2 (04:43→11:52)
[2017-11-12] MEDS: TAMSULOSIN 0.4 MG CAPSULE PO SCH (09:57)
[2017-11-12] MEDS: METOPROLOL TARTRATE 25 MG TABLET PO SCH (09:57)
[2017-11-12] MEDS: AMIODARONE 200 MG TABLET PO SCH (09:57)
[2017-11-12] MEDS: ENOXAPARIN 40 MG/0.4 ML SYRINGE SUBCUT SCH (09:58)
[2017-11-12] MEDS: LISINOPRIL 10 MG TABLET PO SCH (09:58)
[2017-11-12] MEDS: SERTRALINE 100 MG TABLET PO SCH (09:58)
[2017-11-12] MEDS: PANTOPRAZOLE 40 MG VIAL IV SCH (09:59)
[2017-11-12 11:12] VITALS: BP 113/82
[2017-11-12] MEDS: DEXTROSE 5% KCL 20 MEQ 20 MEQ/1,000 ML BAG IV SCH (11:52)
== END 2017-11-12 14:10 | DRG 329 ==
LOC: EDUNIT# → EDBD → N.ED 09:25 → N.EDINP 14:07 → SUATTDRO 14:07 → N.2E 16:10 → N.ICU 11-04 15:28 → N.3E 11-07 21:35
PROVIDERS: ADMIT Hospitalist; ATTEND Internal Medicine